=== PATIENT | male | born 1960 | race Caucasian/White ===

== ENCOUNTER 2024-02-16 12:22 | Inpatient (IN) | payer SELFPAY ==
[~2024-02-16] VITALS: Ht 185.4 cm; Wt 108.9 kg
[~2024-02-16 12:22] MED LIST: CYCL10TA21 MT; IBUP-2029 MT
[2024-02-16 13:00] LABS: HEMOGLOBIN. 16.1 g/dL (14.0-18.0); MEAN CORPUSCULAR HEMOGLOBIN 30.5 pg (28.0-32.0); MEAN CORPUSCULAR VOLUME 92.6 fL (80.0-94.0); PLATELET 267 x1000/uL (130-400); RED BLOOD CELL COUNT 5.29 mill/uL (4.7-6.1); RED CELL DISTRIBUTION WIDTH 14.2 % (11.6-14.6); WHITE BLOOD COUNT 10.8 x1000/uL (4.5-11.0)
[2024-02-16 13:13] LABS: DIFFERENTIAL COMMENT 1
[2024-02-16 13:18] LABS: CHLORIDE 104 mEq/L (98-107); POTASSIUM 3.8 mEq/L (3.5-5.1); SODIUM 138 mEq/L (136-145)
[2024-02-16 13:19] LABS: CALCIUM 9.7 mg/dL (8.7-10.4); CARBON DIOXIDE 26 mEq/L (21-32)
[2024-02-16 13:24] LABS: CREATININE 1.2 mg/dL (0.6-1.3); GLUCOSE 88 mg/dL (70-105); UREA NITROGEN BLOOD 11 mg/dL (9-23)
[2024-02-16 13:31] LABS: ALANINE AMINOTRANSFERASE 18 IU/L (10-49); ALBUMIN 4.9 g/dL (3.2-4.8); ASPARTATE AMINOTRANSFERASE 25 IU/L (<34); BILIRUBIN DIRECT 0.1 mg/dL (<=3.0); BILIRUBIN TOTAL 0.5 mg/dL (0.1-1.0); PROTEIN TOTAL 8.4 g/dL (6.0-8.3)
[2024-02-16 13:52] LABS: PLATELET ESTIMATE NORMAL; TROPONIN I HIGH SENSITIVITY < 4 ng/L (3.0-53)
[2024-02-16] MEDS: ASPIRIN 325MG TABLET PO ONE (13:58)
[2024-02-16 14:32] LABS: D-DIMER 0.61 mg/L FEU (<0.50); INR 0.9; PROTHROMBIN TIME 10.5 sec (9.6-11.0)
[2024-02-16 15:21] LABS: TROPONIN I HIGH SENSITIVITY 4 ng/L (3.0-53)
[2024-02-16 16:13] VITALS: BP 162/85; PULSE 94; RESP 22; TEMP 37.61412; O2SAT 99
[2024-02-16 16:18] VITALS: BP 162/85; PULSE 94; RESP 22; TEMP 37.6412
[2024-02-16] MEDS ORDERED: atorvastatin (16:32)
[2024-02-16] MEDS ORDERED: LOSA50TA41 PO (16:32)
[2024-02-16] MEDS ORDERED: GUAIFENESIN 200MG/10ML SUGAR FREE UDC PO PRN (17:15)
[2024-02-16] MEDS ORDERED: ONDANSETRON HCL 4MG/2ML INJ IV PRN (17:15)
[2024-02-16] MEDS ORDERED: ACETAMINOPHEN 325MG TABLET PO PRN (17:15)
[2024-02-16] MEDS ORDERED: DOCUSATE SODIUM 100MG CAPSULE PO PRN (17:15)
[2024-02-16] MEDS ORDERED: MAGNESIUM/ALUMINUM HYDROXIDE/SIMETHICONE 30ML UDC PO PRN (17:15)
[2024-02-16] MEDS ORDERED: IPRATROPIUM/ALBUTEROL 0.5-3(2.5)MG/3ML NEB HHN PRN (17:15)
[2024-02-16] MEDS ORDERED: NITROGLYCERIN 0.4MG TABLET SL SL PRN (18:30)
[2024-02-16] MEDS: LOSARTAN 50 MG TABLET PO SCH (19:03)
[2024-02-16] MEDS: ACETAMINOPHEN 325MG TABLET PO PRN (19:04)
[2024-02-16 20:00] VITALS: BP 148/86; PULSE 95; RESP 20; TEMP 37.33632; O2SAT 98
[2024-02-16 20:20] LABS: *AMPHETAMINES SCREEN URINE NEGATIVE (NEGATIVE); *BARBITURATES SCREEN URINE NEGATIVE (NEGATIVE); *BENZODIAZEPINES SCREEN URINE NEGATIVE (NEGATIVE); *COCAINE SCREEN URINE NEGATIVE (NEGATIVE); CANNABINOID URINE SCREEN NEGATIVE (NEGATIVE); ECSTASY MDMA SCREEN URINE NEGATIVE (NEGATIVE); METHADONE URINE SCREEN NEGATIVE (NEGATIVE); OPIATES URINE SCREEN NEGATIVE (NEGATIVE); PHENCYCLIDINE URINE SCREEN NEGATIVE (NEGATIVE)
[2024-02-16] MEDS: LEVOFLOXACIN 750MG PREMIX 150 ML IV SCH (23:23)
[2024-02-16] MEDS: METRONIDAZOLE 500 MG PREMIX 100 ML IV SCH (23:23)
[2024-02-16] MEDS: BISMUTH SUBSALICYLATE 262 MG/15 ML-120ML BOTTLE PO NR (23:40)
[2024-02-16] MEDS: ATORVASTATIN CALCIUM 40MG TABLET PO SCH (23:41)
[2024-02-16] MEDS: ENOXAPARIN 30MG/0.3ML SYR SUBCUT SCH (23:42)
[2024-02-17] VITALS (7 sets, daily range): BP systolic 130–154; BP diastolic 81–95; PULSE 65–82; RESP 18–20; TEMP 36.61404–38.00304; O2SAT 96–100
[2024-02-17] MEDS: LACTATED RINGERS 1,000 ML IV SCH (02:07)
[2024-02-17 05:39] LABS: CHLORIDE 105 mEq/L (98-107); POTASSIUM 3.4 mEq/L (3.5-5.1); SODIUM 134 mEq/L (136-145)
[2024-02-17 05:40] LABS: CARBON DIOXIDE 21 mEq/L (21-32)
[2024-02-17 05:45] LABS: CREATININE 1.2 mg/dL (0.6-1.3); GLUCOSE 152 mg/dL (70-105); TRIGLYCERIDE 68 mg/dL (0-150); UREA NITROGEN BLOOD 11 mg/dL (9-23)
[2024-02-17 05:46] LABS: LDL CHOLESTEROL 130 mg/dL (5-100)
[2024-02-17 05:47] LABS: CHOLESTEROL 185 mg/dL (<200); HDL CHOLESTEROL 54 mg/dL (>55); T4 FREE 0.95 ng/dL (0.89-1.76)
[2024-02-17 05:48] LABS: HEMATOCRIT. 43.1 % (42.0-52.0); HEMOGLOBIN. 14.9 g/dL (14.0-18.0); MEAN CORPUSCULAR HEMOGLOBIN 31.8 pg (28.0-32.0); MEAN CORPUSCULAR HGB CONC 34.5 g/dL (31.0-37.0); MEAN CORPUSCULAR VOLUME 92.1 fL (80.0-94.0); MEAN PLATELET VOLUME 8.5 fl (7.4-10.4); PLATELET 227 x1000/uL (130-400); RED BLOOD CELL COUNT 4.68 mill/uL (4.7-6.1); RED CELL DISTRIBUTION WIDTH 14.1 % (11.6-14.6); WHITE BLOOD COUNT 8.5 x1000/uL (4.5-11.0)
[2024-02-17 06:06] LABS: DIFFERENTIAL COMMENT 1
[2024-02-17] MEDS ORDERED: POTASSIUM CHLORIDE 40 MEQ in DEXT 5% WATER 230 ML IV ONE (08:15)
[2024-02-17] MEDS: ASPIRIN 81MG TABLET PO SCH (09:14)
[2024-02-17] MEDS: FAMOTIDINE 20MG/2ML VIAL IV SCH (09:15)
[2024-02-17] MEDS: KCL 20MEQ/100ML X 2 FOR TOTAL KCL 40MEQ/200ML IV SCH (10:22)
[2024-02-17 15:16] LABS: T4 FREE 0.79 ng/dL (0.89-1.76)
[2024-02-17 17:02] LABS: PLATELET ESTIMATE NORMAL
[2024-02-17 17:18] LABS: CREATINE KINASE MB FRACTION 0.8 ng/mL (0.5-3.6)
[2024-02-17 22:13] LABS: CREATINE KINASE MB FRACTION 1.1 ng/mL (0.5-3.6)
[2024-02-18] VITALS: BP 122/61; PULSE 66; RESP 21; TEMP 36.78072; O2SAT 99
[2024-02-18 04:00] VITALS: BP 149/100; PULSE 64; RESP 20; TEMP 37.2252; O2SAT 99
[2024-02-18] MEDS: CLONIDINE 0.1MG TABLET PO PRN (04:45)
[2024-02-18 06:54] LABS: CHLORIDE 108 mEq/L (98-107); POTASSIUM 3.7 mEq/L (3.5-5.1); SODIUM 137 mEq/L (136-145)
[2024-02-18 06:55] LABS: CARBON DIOXIDE 22 mEq/L (21-32); CREATINE KINASE MB FRACTION 1.6 ng/mL (0.5-3.6); TROPONIN I HIGH SENSITIVITY 6 ng/L (3.0-53)
[2024-02-18 06:56] LABS: CALCIUM 9.1 mg/dL (8.7-10.4)
[2024-02-18 06:59] LABS: HEMATOCRIT. 43.7 % (42.0-52.0); HEMOGLOBIN. 14.4 g/dL (14.0-18.0); MEAN CORPUSCULAR HEMOGLOBIN 30.5 pg (28.0-32.0); MEAN CORPUSCULAR VOLUME 92.5 fL (80.0-94.0); MEAN PLATELET VOLUME 8.3 fl (7.4-10.4); PLATELET 215 x1000/uL (130-400); RED BLOOD CELL COUNT 4.73 mill/uL (4.7-6.1); RED CELL DISTRIBUTION WIDTH 14.2 % (11.6-14.6); WHITE BLOOD COUNT 4.6 x1000/uL (4.5-11.0)
[2024-02-18 07:00] LABS: CREATININE 1.1 mg/dL (0.6-1.3); GLUCOSE 102 mg/dL (70-105); UREA NITROGEN BLOOD 14 mg/dL (9-23)
[2024-02-18 07:02] LABS: CREATINE KINASE 119 IU/L (46-171)
[2024-02-18 07:32] LABS: DIFFERENTIAL COMMENT 1
[2024-02-18 07:58] VITALS: BP 134/88; PULSE 55; RESP 20; TEMP 36.61404; O2SAT 98
[2024-02-18] MEDS ORDERED: IOHEXOL-350 100 ML BOTTLE ONE (10:50)
[2024-02-18] MEDS: NITROGLYCERIN SPRAY/4.9GM CAN TL ONE (11:00)
[2024-02-18 12:00] VITALS: BP 105/68; PULSE 56; RESP 18; TEMP 36.6696; O2SAT 98
[2024-02-18] MEDS ORDERED: LIP40 PO (14:12)
[2024-02-18] MEDS ORDERED: ASPI-1160 PO (14:12)
[2024-02-18 14:44] VITALS: BP 121/58; PULSE 59; TEMP 97.8; O2SAT 98
[2024-02-18 15:15] LABS: PLATELET ESTIMATE NORMAL
[2024-02-18 16:00] VITALS: BP 141/94; PULSE 59; RESP 20; TEMP 36.50292; O2SAT 98
== END 2024-02-18 18:24 | disposition home or self-care (01) | DRG 249 ==
LOC: ER 12:27 → 8WST 14:35 → EDBEDREQ 14:37
PROVIDERS: ADMIT Internal Medicine; ATTEND Internal Medicine
DX: A05.9 Bacterial foodborne intoxication, unspecified (principal); I20.0 Unstable angina; K52.9 Noninfective gastroenteritis and colitis, unspecified; E78.00 Pure hypercholesterolemia, unspecified; E87.6 Hypokalemia; R00.0 Tachycardia, unspecified; I10 Essential (primary) hypertension; K57.30 Diverticulosis of large intestine without perforation or abscess without bleeding; Z79.899 Other long term (current) drug therapy; Z91.199 Patient's noncompliance with other medical treatment and regimen due to unspecified reason
CPT/HCPCS: 36415; 71045; 74176; 75571; 80048; 80061; 80076; 80305; 82550; 82553; 83036; 83605; 83880; 84145; 84439; 84443; 84484; 85025; 85379; 87015; 87045; 87177; 87209; 87427; 87449; 89055; 93005; 93306; 93970; 99285; J1650; J1956; J3480; J3490; J7120; Q9967